=== PATIENT | female | born 1985 | race Caucasian/White ===

== ENCOUNTER → 2019-07-31 14:10 | Outpatient (BNVA) | payer OTHER, SELFPAY | PROVIDERS: Family Provider Registered Nurse; Visit Provider Registered Nurse | DX: R39.9 Unspecified symptoms and signs involving the genitourinary system (principal); R10.9 Unspecified abdominal pain | CPT/HCPCS: 81000 ==

== ENCOUNTER → 2020-01-09 10:42 | Outpatient (BNVA) | payer OTHER, SELFPAY | PROVIDERS: Family Provider Registered Nurse; Visit Provider Obstetrics & Gynecology | DX: Z12.4 Encounter for screening for malignant neoplasm of cervix (principal) | CPT/HCPCS: 88175 ==

== ENCOUNTER → 2020-01-30 11:58 | Outpatient (BNVA) | payer OTHER, SELFPAY | PROVIDERS: Family Provider Registered Nurse; Visit Provider Nurse Practitioner Family | DX: Z20.828 Contact with and (suspected) exposure to other viral communicable diseases (principal); J06.9 Acute upper respiratory infection, unspecified; R43.0 Anosmia | CPT/HCPCS: 87635 ==

== ENCOUNTER → 2020-02-09 10:24 | Outpatient (BNVA) | payer OTHER, SELFPAY | PROVIDERS: Family Provider Registered Nurse; Visit Provider Nurse Practitioner | DX: R05 Cough (principal) | CPT/HCPCS: 71046 ==

== ENCOUNTER → 2020-03-25 17:20 | Outpatient (BNVA) | payer OTHER, SELFPAY | PROVIDERS: Family Provider Registered Nurse; Visit Provider Nurse Practitioner Family | DX: Z20.828 Contact with and (suspected) exposure to other viral communicable diseases (principal); J06.9 Acute upper respiratory infection, unspecified | CPT/HCPCS: 87635 ==

== ENCOUNTER → 2021-06-08 09:05 | Outpatient (BNVA) | payer BC, SELFPAY | PROVIDERS: Family Provider Registered Nurse; PCP Registered Nurse; Visit Provider Registered Nurse | DX: F32.9 Major depressive disorder, single episode, unspecified (principal); L03.039 Cellulitis of unspecified toe; F43.10 Post-traumatic stress disorder, unspecified | CPT/HCPCS: 80053 ==

== ENCOUNTER 2021-06-23 14:59 | Inpatient (IN) | payer BC, SELFPAY ==
--- NOTE | 2021-06-23 15:56 | ED.C_ITS ---
HPI - Psych General: Chief Complaint: Psychiatric Symptoms Stated Complaint: psych eval Time Seen by Provider: 06/23/21 15:56 History of Present Illness: Ms. Thacker is a 35-year-old lady with history of PTSD who presents the emergency department due to worsening mental state. She reports longstanding history of issues with PTSD and has at times been managed outpatient on medications. Last hospitalization was approximately 14 years ago. Over the past week or so and especially over past few day she has had marked worsening of symptoms. She endorses going and talking to [facility] yesterday and subsequently developing worse symptoms. She is tearful and anxious. She feels like she wants to cry but cannot. She has had fights with family and is lashing out. Overall the course of symptoms has been worsening. Intensity is moderate to severe. And HPI. Onset (ago): day(s) History of same: Yes Context: significant life stressor Associated psychiatric symptoms: depression and racing thoughts Review of Systems General: Reports: 10 or more systems reviewed and unremarkable except in HPI and below PFSH ED PFSH: Medical History Depression Psychiatric care Surgical History No pertinent past surgical history Family History Mother , age 23 from car accident No problems noted. Social History Smoking and tobacco status: current every day smoker cigarettes Packs smoked per day: 0.5 [ Other cigarette details: Most 1 ppd. Started age 21.] Alcohol intake: current Alcohol intake frequency: holidays/special occasions only Adopted: No Caregiver/support person: No Lives independently: No Household members: spouse and children Marital status: service: No Current occupational status: employed Sexually active: Yes Current gender identity: Female Physical Exam Const: COMMON NORMALS: alert GENERAL APPEARANCE: cooperative and well developed HENMT: COMMON NORMALS: normocephalic and atraumatic HEAD & SCALP: normocephalic and atraumatic Eye: COMMON NORMALS: conjunctivae normal CONJUNCTIVA: Yes conjunctivae normal SCLERA: sclerae normal Neck/C-Spine: COMMON NORMALS: supple GENERAL: Yes trachea midline Resp: COMMON NORMALS: normal respiratory effort EFFORT & INSPECTION: Yes able to speak in complete sentences Cardio: COMMON NORMALS: regular rate and regular rhythm RATE: regular rate RHYTHM: regular rhythm GI: COMMON NORMALS: Soft to palpation PALPATION: Yes Soft to palpation and No Tenderness to palpation present (GI) PERCUSSION: normal to percussion Extremity: GENERAL: Yes normal exam except as noted and No edema Neuro: COMMON NORMALS: moves all extremities SENSORIUM/ORIENTATION: Yes alert and No Orientation impaired Psych: ATTITUDE: Yes Withdrawn affect present MOOD & AFFECT: Yes depressed mood, Yes anxious and Yes Labile affect present Course ED course: - Patient was seen and evaluated by me at bedside -Vital signs obtained - Initial evaluation notable for exam as above, intermittent tearfulness, dist ressed due to psychologic state - Labs personally interpreted by me - Labs notable for no significant hematologic or metabolic abnormality to explain patient's symptoms. Drug screen as tested only positive for THC which the patient endorses. - Upon serial reexamination after treatment the patient was similar - Discussed with Dr. Borges who agreed to admit the patient to the psychiatric service - Based on ED evaluation to this point there is no obvious condition that would preclude the patient from inpatient management of psychiatric concerns. She desires inpatient management. Note: Click bubbles or prepopulated duque in note writing are used for assistance with data collection and billing and are inherently more limited than narrative and other text portions of this note. Please use narrative for additional clinical history and defer to narrative/free test for any case of contradictory information. If information appears in only free text or click bubble it should be considered present or absent as reported. Please contact note junior copywriter for clarifications of clinical information or contradictory information. MDM is a brief summary, contradictory or erroneous seeming information should be clarified and full note should be reviewed. Vital Signs: Vital signs: Vital Signs Temperature 97.7 F 06/25/21 09:16 Pulse Rate 84 06/25/21 09:16 Respiratory Rate 17 06/25/21 09:16 Blood Pressure 144/90 06/25/21 09:16 Pulse Oximetry 98 06/25/21 09:16 MDM - Psych Medical Decision Making 35-year-old lady with history of trauma and psychiatric illness who has not recently been managed presenting for worsening symptoms. Admitted to NPU for further management. Medical Records I reviewed the patient's medical records. Lab Data I reviewed the patient's lab results. : 06/23/21 16:30 06/23/21 16:30 Laboratory Results WBC 8.3 10^3/uL (4.0-10.0) 06/23/21 16:30 RBC 4.75 10^6/uL (4.1-5.3) 06/23/21 16:30 Hgb 15.1 g/dL (11.5-15.3) 06/23/21 16:30 Hct 42.9 % (37.0-47.0) 06/23/21 16:30 MCV 90.3 fl (81-99) 06/23/21 16: MCH 31.8 pg (28.0-34.0) 06/23/21 16: MCHC 35.2 g/dL (30.0-36.0) 06/23/21 16: RDW 11.7 % (12.1-15.1) L 06/23/21 16: Plt Count 185 10^3/cmm (130-400) 06/23/21 16: MPV 10.4 fL (7.4-10.4) 06/23/21 16:30 Neut % (Auto) 67.6 % 06/23/21 16:30 Lymph % (Auto) 24.8 % 06/23/21 16:30 [place] % (Auto) 6.6 % 06/23/21 16:30 Eos % (Auto) 0.5 % 06/23/21 16: Baso % (Auto) 0.4 % 06/23/21: Neut # (Auto) 5.63 10^3/uL (1.8-7.7) 06/23/21 16: Lymph # (Auto) 2.1 10^3/uL (0.8-4.8) 06/23/21 16:30 [place] # (Auto) 0.6 10^3/uL (0.2-0.9) 06/23/21 16:30 Eos # (Auto) 0.0 10^3/uL (0.0-0.8) 06/23/21 16:30 Baso # (Auto) 0.0 10^3/uL (0.0-0.1) 06/23/21 16:30 Nucleated RBC % (auto) 0 % 06/23/21 16:30 Nucleated RBCs # 0.0 /100WBC 06/23/21 16:30 Sodium 140 mmol/L (136-145) 06/23/21 16:30 Potassium 3.8 mmol/L (3.5-5.1) 06/23/21 16:30 Chloride 105 mmol/L (98-107) 06/23/21 16:30 Carbon Dioxide 24 mmol/L (22-29) 06/23/21 16:30 Anion Gap 14.8 (5-19) 06/23/21 16:30 BUN 8 mg/dL (6-20) 06/23/21 16:30 Creatinine 0.6 mg/dL (0.5-0.9) 06/23/21 16:30 GFR Calculation 113.8 mL/min (90-130) 06/23/21 16:30 Glucose 81 mg/dL (65-115) 06/23/21 16:30 Calculated Osmolality 287 mOsm/kg (285-295) 06/23/21 16:30 Calcium 9.1 mg/dL (8.5-10.5) 06/23/21 16:30 Total Bilirubin 0.4 mg/dL (0.15-1.2) 06/23/21 16:30 AST 17 U/L (0-32) 06/23/21 16:30 ALT 17 U/L (0-33) 06/23/21 16:30 Alkaline Phosphatase 64 IU/L (35-105) 06/23/21 16:30 Total Protein 7.0 g/dL (6.6-8.7) 06/23/21 16:30 Albumin 4.2 g/dL (3.5-5.2) 06/23/21 16:30 Globulin 2.8 g/dL (1.3-4.6) 06/23/21 16:30 TSH 3.88 uIU/mL (0.27-4.20) 06/23/21 16:30 HCG, Qual Negative (Negative) 06/23/21 16:05 Salicylates < 0.3 mg/dL (3-10) L 06/23/21 16:30 Urine Opiates Screen Negative ng/mL (Negative) 06/23/21 16:05 Acetaminophen < 5.0 ug/mL (10-30) L 06/23/21 16:30 Ur Barbiturates Screen Negative ng/mL (Negative) 06/23/21 16:05 Ur Phencyclidine Scrn Negative ng/mL (Negative) 06/23/21 16:05 Ur Amphetamines Screen Negative ng/mL (Negative) 06/23/21 16:05 U Benzodiazepines Scrn Negative ng/mL (Negative) 06/23/21 16:05 Urine Cocaine Screen Negative ng/mL (Negative) 06/23/21 16:05 U Marijuana (THC) Screen Positive ng/mL (Negative) H 06/23/21 16:05 Ethyl Alcohol < 10 mg/dL (0-10) 06/23/21 16:30 Discharge Plan Discharge Patient Disposition: Admitted As Inpatient Admit Provider: Douglas Borges Clinical Impression: Depression Condition: Stable Discharge Diet: Regular Discharge Activity: Resume usual activity Coding Level of Care Code ED Surveillance Officer for Jose Lambert
[2021-06-23 15:58] VITALS: BP 144/94; PULSE 89; RESP 15; TEMP 37.1; O2SAT 98; BMI 28.5
[2021-06-23 16:47] LABS: Basophils % 0.4 %; Eosinophils % 0.5 %; Hematocrit 42.9 % (37.0-47.0); Hemoglobin 15.1 g/dL (11.5-15.3); Lymphocytes # 2.1 10^3/uL (0.8-4.8); Lymphocytes % 24.8 %; Mean Corpuscular HGB Conc 35.2 g/dL (30.0-36.0); Mean Corpuscular Hemoglobin 31.8 pg (28.0-34.0); Mean Corpuscular Volume 90.3 fl (81-99); Mean Platelet Volume 10.4 fL (7.4-10.4); Monocytes # 0.6 10^3/uL (0.2-0.9); Monocytes % 6.6 %; Neutrophils # 5.63 10^3/uL (1.8-7.7); Neutrophils % 67.6 %; Nucleated Red Blood Cells % 0 %; Platelet Count 185 10^3/cmm (130-400); Red Blood Count 4.75 10^6/uL (4.1-5.3); Red Cell Distribution Width 11.7 % (12.1-15.1); White Blood Count 8.3 10^3/uL (4.0-10.0)
[2021-06-23 16:49] LABS: HCG Qualitative Urine. Negative (Negative)
[2021-06-23 17:31] LABS: Alanine Aminotransferase 17 U/L (0-33); Albumin Level 4.2 g/dL (3.5-5.2); Alkaline Phosphatase 64 IU/L (35-105); Anion Gap 14.8 (5-19); Aspartate Amino Transferase 17 U/L (0-32); Blood Urea Nitrogen 8 mg/dL (6-20); Calcium 9.1 mg/dL (8.5-10.5); Carbon Dioxide 24 mmol/L (22-29); Chloride 105 mmol/L (98-107); Creatinine Clr Calc Pharmacy 120.5784; Globulin 2.8 g/dL (1.3-4.6); Glomerular Filtration Rate 113.8 mL/min (90-130); Glucose 81 mg/dL (65-115); Osmolality Calculated 287 mOsm/kg (285-295); Potassium 3.8 mmol/L (3.5-5.1); Sodium 140 mmol/L (136-145); Thyroid Stimulating Hormone 3.88 uIU/mL (0.27-4.20); Total Bilirubin 0.4 mg/dL (0.15-1.2)
[2021-06-23 17:41] LABS: Acetaminophen < 5.0 ug/mL (10-30); Alcohol Level < 10 mg/dL (0-10); Salicylate < 0.3 mg/dL (3-10)
[2021-06-23 19:23] LABS: Amphetamines Screen Urine Negative (Negative); Barbiturates Screen Urine Negative (Negative); Benzodiazepines Screen Urine Negative (Negative); Cocaine Screen Urine Negative (Negative); Opiate Screen Urine Negative (Negative); PCP Screen Urine Negative (Negative); THC Screen Urine Positive (Negative)
[2021-06-23 19:30] VITALS: BP 129/93; PULSE 104; RESP 18; TEMP 36.9; O2SAT 97
[2021-06-23 19:31] VITALS: BP 129/93; PULSE 94; RESP 18; O2SAT 98
[2021-06-23] MEDS: hyDROXYzine 25 mg Capsule 50 MG PO (21:27)
--- NOTE | 2021-06-23 21:52 | PC.NURSE ---
2126- requested vistaril for anxiety.
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
[2021-06-24 06:00] VITALS: BP 118/75; PULSE 77; RESP 17; TEMP 36.8; O2SAT 96
[2021-06-24] MEDS: PARoxetine 20 mg Tablet 60 MG PO (08:45)
[2021-06-24] MEDS: hyDROXYzine 25 mg Capsule 50 MG PO ×2 (09:17→20:04)
--- NOTE | 2021-06-24 09:19 | PC.NURSE ---
Addendum entered by Telly Hansen RN 06/24/21 09:48: PT ON PHONE, O S/S OF DISTRESS, WILL CONTINUE TO MONITOR. Original Note: PRN MED PT GIVEN 50MG VISTARIL FOR STATED ANXIETY, WILL CONTINUE TO MONITOR.
[2021-06-24] MEDS: acetaminophen 325 mg Tablet 650 MG PO (10:46)
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
[2021-06-24 14:00] VITALS: BP 124/76; PULSE 83; RESP 17; TEMP 36.6; O2SAT 95
[2021-06-24] MEDS: nicotine 2 mg Gum BUCCAL ×2 (16:16→18:35)
--- NOTE | 2021-06-24 16:39 | PC.SOCIAL ---
Patient attended and participated in group.
[2021-06-24] MEDS: OLANZapine 5 mg ODT PO (18:35)
--- NOTE | 2021-06-24 18:39 | PC.NURSE ---
PRN MED PT GIVEN 5MG ZYPREXA, FOR ANXIETY/IRRITABLE, WILL CONTINUE TO MONITOR.
[2021-06-24 20:36] VITALS: BP 144/90; PULSE 84; RESP 17; TEMP 36.5; O2SAT 98
--- NOTE | 2021-06-24 21:37 | PC.NURSE ---
2004 Received vistaril for her anxiety.
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
[2021-06-25] MEDS: hyDROXYzine 25 mg Capsule 50 MG PO (08:37)
[2021-06-25] MEDS: PARoxetine 20 mg Tablet 60 MG PO (08:37)
[2021-06-25] MEDS: docusate sodium 100 mg Capsule PO (08:39)
[2021-06-25 09:16] VITALS: BP 144/90; PULSE 84; RESP 17; TEMP 36.5; O2SAT 98
== END 2021-06-25 10:45 | disposition home or self-care (01) | DRG 881 ==
LOC: ER 18:02 → NP 18:58
PROVIDERS: Admitting Provider Psychiatry & Neurology Psychiatry; Emergency Provider Emergency Medicine; Family Provider Registered Nurse; PCP Registered Nurse; Visit Provider Psychiatry & Neurology Psychiatry
DX: F32.A Depression, unspecified (principal); F43.12 Post-traumatic stress disorder, chronic; F17.210 Nicotine dependence, cigarettes, uncomplicated; F41.9 Anxiety disorder, unspecified
CPT/HCPCS: 80053; 80306; 80307; 81025; 84443; 85025; 97150; 97165; 99285

== ENCOUNTER → 2021-07-30 10:47 | Outpatient (BNVA) | payer BC, SELFPAY | PROVIDERS: PCP Registered Nurse; Visit Provider Nurse Practitioner Family | DX: N39.0 Urinary tract infection, site not specified (principal); R30.0 Dysuria | CPT/HCPCS: 81000 ==

== ENCOUNTER → 2022-07-14 13:28 | Outpatient (BNVA) | payer MEDICAID, SELFPAY | PROVIDERS: PCP Registered Nurse; Visit Provider Registered Nurse | DX: R10.9 Unspecified abdominal pain (principal); B37.0 Candidal stomatitis | CPT/HCPCS: 81000; 87070; 87075; 87205 ==

== ENCOUNTER 2022-07-15 08:36 | Emergency (ER) | payer MEDICAID, SELFPAY ==
[2022-07-15 08:45] VITALS: TEMP 36.7; BMI 36.0
[2022-07-15 08:49] VITALS: BP 134/95; PULSE 89; RESP 16; O2SAT 94
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
[2022-07-15 09:52] VITALS: RESP 20
[2022-07-15] MEDS: ketorolac 30 mg/mL INJ IVP (09:52)
[2022-07-15] MEDS: morphine 4 mg/mL SDV 1 mL IVP (09:52)
[2022-07-15] MEDS: orphenadrine 30 mg/mL Inj 2 mL 60 MG IVP (09:52)
[2022-07-15] MEDS: dexamethasone 10 mg/mL INJ IVP (09:52)
[2022-07-15 10:02] VITALS: BP 138/104; PULSE 81; O2SAT 95
[2022-07-15 10:35] VITALS: BP 118/76; O2SAT 93
[2022-07-15 10:51] LABS: Urine Appearance Hazy (CLEAR); Urine Color Straw (Yellow); pH Urine 8 (5-7)
[2022-07-15 10:52] LABS: Bilirubin Urine Neg (Negative); Blood Urine Neg (Negative); Glucose Urine UA Norm (Normal); Ketones Urine Negative (Negative); Nitrate Urine Negative (Negative); Protein Urine Neg (Negative); Specific Gravity, Urine 1.005 (1.005-1.030); Sulfosalicylic Acid Urine Negative (Negative); Urobilinogen Urine Norm (Negative)
[2022-07-15 10:53] LABS: Add Urine Culture? No; Add Urine Microscopic? YES; Bacteria Urine 1+ /hpf; Leukocyte Esterase Urine Trace (Negative); RBC Urine 0-4 /hpf (0-2); WBC Urine 0-4 /hpf (0-5)
[2022-07-15 11:26] VITALS: BP 122/98; PULSE 89; O2SAT 94
== END 2022-07-15 11:26 | disposition home or self-care (01) ==
PROVIDERS: Emergency Provider Family Medicine; PCP Registered Nurse
DX: S39.012A Strain of muscle, fascia and tendon of lower back, initial encounter (principal); F17.210 Nicotine dependence, cigarettes, uncomplicated; X58.XXXA Exposure to other specified factors, initial encounter
CPT/HCPCS: 81001; 96374; 96375; 99284; J1100; J1885; J2270; J2360

== ENCOUNTER 2022-07-21 12:08 | Outpatient (CLI) | payer MEDICAID, SELFPAY ==
--- NOTE | 2022-07-21 11:00 | CT_ITS ---
WS: [id number] CT ABDOMEN PELVIS TECHNIQUE: Noncontrast CT of the abdomen and pelvis with coronal and sagittal reformatted images. CLINICAL INFORMATION: N20.0 - Calculus of kidney COMPARISON: 2013 DLP: 671.[address] scans at [facility] use at least one of these dose optimization techniques: automated e xposure control; mA and/or kV adjustment per patient size (includes targeted exams where dose is matc hed to clinical indication); or iterative reconstruction. FINDINGS: Noncontrast liver is normal. Normal noncontrast spleen. Small esophageal hiatal hernia. Adrenal gland s are normal. Noncontrast pancreas is normal. Normal sigmoid colon. Normal appendix RIGHT lower quadr ant. No evidence of acute appendicitis. Lung bases are well aerated. Adrenal glands are normal. No hydronephrosis in either kidney. No obstru cting renal or ureteral calculi.No evidence of high-grade small or large bowel obstruction. Tiny fat- containing umbilical hernia. CT/CT kidney stone [id number] IMPRESSION: 1. No hydronephrosis in either kidney. 2. No obstructing renal or ureteral calculi. 3. Normal appendix in the RIGHT lower quadrant. No evidence of acute appendici tis. 4. Small esophageal hiatal hernia. 5. Normal sigmoid colon. 6. No other acute findings.
== END 2022-07-21 12:09 | disposition home or self-care (01) ==
LOC: RAD 12:10
PROVIDERS: PCP Registered Nurse; Visit Provider Registered Nurse
DX: N20.0 Calculus of kidney (principal); K44.9 Diaphragmatic hernia without obstruction or gangrene; R10.9 Unspecified abdominal pain; F41.9 Anxiety disorder, unspecified
CPT/HCPCS: 74176; 80053; 81000; 85025

== ENCOUNTER 2022-07-22 13:42 | Outpatient (CLI) | payer MEDICAID, SELFPAY ==
--- NOTE | 2022-07-22 13:51 | XR_ITS ---
WS: [id number] Lumbar spine, 3 views, 07/22/2022 Clinical Data: S39.012A - Strain of muscle, fascia and tendon of lower b... Comparison: None. Findings: No compression fractures or subluxation is seen. No disc space narrowing is seen. Minimal anterior sp urring is seen at L4. The transverse processes and SI joints are normal. XR/XR lumbar spine 2-3V* [id number] Impression: Mild osteoarthritis at L4.
== END 2022-07-22 13:43 | disposition home or self-care (01) ==
PROVIDERS: PCP Registered Nurse; Visit Provider Registered Nurse
DX: S39.012A Strain of muscle, fascia and tendon of lower back, initial encounter (principal); X58.XXXA Exposure to other specified factors, initial encounter; M47.816 Spondylosis without myelopathy or radiculopathy, lumbar region
CPT/HCPCS: 72100

== ENCOUNTER → 2022-10-25 19:17 | Outpatient (BNVA) | payer MEDICAID, SELFPAY | PROVIDERS: PCP Registered Nurse; Visit Provider Emergency Medicine | DX: R05.9 Cough, unspecified (principal); J20.8 Acute bronchitis due to other specified organisms; B96.89 Other specified bacterial agents as the cause of diseases classified elsewhere | CPT/HCPCS: 87426 ==

== ENCOUNTER 2022-12-16 15:52 | Outpatient (CLI) | payer MEDICAID, SELFPAY ==
--- NOTE | 2022-12-16 16:06 | XRR_ITS ---
PROCEDURE INFORMATION: Exam: XR Chest Exam date and time: 12/16/2022 4:09 PM Age: 37 years old Clinical indication: Shortness of breath; Patient HX: SOB since October; Additional info: R06.02 - shortness of breath TECHNIQUE: Imaging protocol: Radiologic exam of the chest. Views: 2 views. COMPARISON: CR XR chest 2V* [id number] 02/09/2020 10:39 AM FINDINGS: Lungs: Unremarkable. No consolidation. Pleural spaces: Unremarkable. No pleural effusion. No pneumothorax. Heart/Mediastinum: Unremarkable. No cardiomegaly. Bones/joints: Unremarkable. XR/XR chest 2V* [id number] IMPRESSION: No acute findings.
== END 2022-12-16 15:53 | disposition home or self-care (01) ==
PROVIDERS: PCP Registered Nurse; Visit Provider Registered Nurse
DX: R06.02 Shortness of breath (principal)
CPT/HCPCS: 71046

== ENCOUNTER → 2023-04-20 11:36 | Outpatient (BNVA) | payer SELFPAY | PROVIDERS: PCP Registered Nurse; Visit Provider Registered Nurse | DX: I10 Essential (primary) hypertension (principal) | CPT/HCPCS: 80053; 80061; 85025; 93005 ==

== ENCOUNTER 2023-05-08 12:11 | Emergency (ER) | payer SELFPAY ==
[2023-05-08 12:22] VITALS: BP 139/88; PULSE 98; RESP 16; TEMP 36.7; O2SAT 97; BMI 38.4
--- NOTE | 2023-05-08 12:39 | W.ED.ALLEREA ---
HPI - Allergic Reaction General: Chief complaint: Allergic Reaction Stated complaint: sent over by dr allergic reation Time Seen by Provider: 05/08/23 12:12 Source: patient Mode of arrival: ambulatory Limitations: no limitations History of Present Illness: HPI narrative: Patient is a 37-year-old female presents to ED today with complaint of full body itching. She states symptoms have been present over the past 2 to 3 days. No known environmental, chemical, household exposures. She has not noticed any obvious rash or lesions. She has not noticed any swelling to her lips or tongue. She has no difficulty swallowing or breathing. MD complaint: other (itching) Onset (ago): day(s) Exposure: unknown Associated symptoms: Reports itching; Deny abdominal pain, nausea or vomiting Severity: moderate Previous Allergic Reaction History: none Review of Systems Const: Denies: fever(s), chills, body aches, fatigue or malaise Eyes: Denies: change in vision, blurry vision, photophobia, floaters or seeing flashes ENMT: Denies: throat pain, uvular edema, enlarged tonsils, odynophagia or swelling of lips/tongue Card: Denies: chest pain Resp: Denies: dyspnea GI: Denies: abdominal pain, nausea or vomiting Skin/Breast: Reports: pruritus Neuro: Denies: headache(s), numbness in extremities, weakness in extremities or sensory changes PFSH ED PFSH: Medical History Cannabis dependence, uncomplicated Nicotine dependence, cigarettes, uncomplicated Psychiatric care Depression Surgical History No pertinent past surgical history Family History Mother , age 23 from car accident No problems noted. Social History Smoking and tobacco/nicotine status: former use of tobacco/nicotine Quit status (tobacco/nicotine): has quit using Year quit tobacco: 2022 Former quit date comment: 12/2022 Second hand smoke exposure: No Alcohol intake: current Alcohol intake frequency: holidays/special occasions only Alcohol type: wine Substance/Drug Use: former Adopted: No Caregiver/support person: No Lives independently: No Household members: spouse and children Marital status: service: No Current occupational status: employed Sexually active: Yes Do you think of yourself as: Straight/Heterosexual Current gender identity: Female Physical Exam Const: COMMON NORMALS: no acute distress, patient oriented x3, no limitations, alert and well nourished GENERAL APPEARANCE: cooperative and other (itching) HENMT: COMMON NORMALS: normocephalic and atraumatic HEAD & SCALP: normal to inspection, normocephalic and atraumatic FACE & SINUS: normal facial exam; no erythema and no edema MOUTH: Normal oral and palatal mucosa present, lip normal and other (no angioedema) THROAT: posterior oropharynx normal and tonsils normal; no uvular edema Eye: GENERAL EYE: appearance normal, both eyes and all related structures Resp: COMMON NORMALS: normal respiratory effort and clear to auscultation bilaterally AUSCULTATION: clear to auscultation bilaterally Cardio: COMMON NORMALS: regular rate and regular rhythm RATE: regular rate RHYTHM: regular rhythm Extremity: GENERAL: Yes normal exam except as noted Neuro: COMMON NORMALS: patient oriented x3, moves all extremities, no focal motor deficits and no sensory deficits noted SENSORIUM/ORIENTATION: Yes alert Skin: NARRATIVE SKIN EXAM: mild non-specific rash posterior neck/upper shoulders Course Vital Signs: Vital signs: Vital Signs Temperature 98.0 F 05/08/23 12:22 Pulse Rate 98 05/08/23 12:22 Respiratory Rate 16 05/08/23 12:22 Blood Pressure 139/88 05/08/23 12:22 Pulse Oximetry 97 05/08/23 12:22 Oxygen Delivery Me thod Room Air 05/08/23 12:22 MDM - Allergic Reaction Medical Decision Making Patient here with complaints of diffuse pruritus without any known exposure. She has a mild rash to the back of her neck/upper shoulders this does not appear urticarial. Her vital signs are normal. She has no angioedema. No complaints of difficulty swallowing or breathing. Patient was given IV Solu-Medrol and Benadryl here. Patient is on lisinopril but again has no angioedema. Differential for generalized pruritus can be vast. Recommend she follow up with her PCP if symptoms do not improve over the next few days with steroids/benadryl. Medical Records I reviewed the patient's medical records. No radiology studies performed this visit Discharge Plan Discharge Patient Disposition: Home Clinical Impression: Pruritus Condition: Stable Prescriptions: New prednisone 10 mg tablet 10 mg PO DAILY 7 Days Qty: 27 0RF Rx Instructions: 6 tabs on days 1-2, 5 tabs on days 3, 4 tabs on day 4, 3 tabs on day 5, 2 tabs on day 6, 1 tab on day 7 No Action sertraline 50 mg tablet See Rx Instructions .ROUTE .COMPLEX Qty: 30 2RF Dose Instruction: TAKE ONE TABLET BY MOUTH DAILY Rx Instructions: TAKE ONE TABLET BY MOUTH DAILY lisinopril 10 mg tablet 10 mg PO DAILY 30 Days Qty: 30 0RF Discharge Orders: Discharge ED (Routine); Ordered 05/08/23 Ordered By: Ainsley Mcconnell Referrals: Daniela Tinajero FNP [Primary Care Provider] - Activity Restrictions/Additional Instructions: As we discussed you may continue to take Benadryl 50mg every 4-6 hours as needed for itching. Please follow-up with your primary care provider later this week if symptoms do not improve. You need to return to the emergency department at any point for swelling to your lips or tongue, difficulty breathing or swallowing, or any other concerns you may have. Coding Level of Care Code ED Marksmanship Instructor for Jose Lambert
[2023-05-08] MEDS: methylPREDNISolone sod succ 125 mg/2 mL INJ IVP (13:04)
[2023-05-08] MEDS: diphenhydrAMINE 50 mg/mL SDV 1mL IVP (13:04)
[2023-05-08 14:11] VITALS: BP 167/84; PULSE 87; O2SAT 97
== END 2023-05-08 14:19 | disposition home or self-care (01) ==
PROVIDERS: Emergency Provider Physician Assistant; PCP Registered Nurse
DX: L29.9 Pruritus, unspecified (principal); Z87.891 Personal history of nicotine dependence
CPT/HCPCS: 96374; 96375; 99284; J1200; J2930

== ENCOUNTER 2023-05-19 12:42 | Emergency (ER) | payer SELFPAY ==
[2023-05-19 12:55] VITALS: BP 139/80; PULSE 109; RESP 18; TEMP 36.7; O2SAT 97
--- NOTE | 2023-05-19 13:44 | XR_ITS ---
WS: [id number] Exam: XR chest 1V portable [id number] Date/Time of Exam: 05/19/2023 1:44 PM Reason For Exam: dyspnea/cough Comparison 12/16/2022. Findings: The lungs are clear and fully expanded. Costophrenic angles are sharp. No infiltrates. Bronchovascula r relief appears normal. Cardiac silhouette is unremarkable. Bony elements are intact. IMPRESSION: Unremarkable chest radiograph.
--- NOTE | 2023-05-19 13:44 | ECG_ITS ---
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 [email or web address] [id number]
[2023-05-19 14:39] LABS: Basophils % 0.4 %; Eosinophils # 0.1 10^3/uL (0.0-0.8); Eosinophils % 0.9 %; Hematocrit 40.9 % (36-47); Lymphocytes # 2.4 10^3/uL (0.8-4.8); Lymphocytes % 22.2 %; Mean Corpuscular Hemoglobin 30.2 pg (27-33); Mean Corpuscular Volume 88.7 fl (85-98); Mean Platelet Volume 8.9 fL (7.4-10.4); Monocytes # 0.6 10^3/uL (0.2-0.9); Neutrophils % 70.1 %; Nucleated Red Blood Cells % 0 %; Platelet Count 177 10^3/cmm (157-399); Red Blood Count 4.61 10^6/uL (3.85-5.65); Red Cell Distribution Width 12.5 % (12.1-15.1)
[2023-05-19 14:58] LABS: Alanine Aminotransferase 17 U/L (0-33); Albumin Level 3.6 g/dL (3.5-5.2); Alkaline Phosphatase 71 U/L (35-105); Anion Gap 11.9 (5-19); Aspartate Amino Transferase 12 U/L (0-32); Blood Urea Nitrogen 13 mg/dL (6-20); Calcium 8.6 mg/dL (8.5-10.5); Carbon Dioxide 27 mmol/L (22-29); Chloride 102 mmol/L (98-107); Creatinine Clr Calc Pharmacy 167.0892; Globulin 2.8 g/dL (1.3-4.6); Glomerular Filtration Rate 138.8 mL/min (90-130); Glucose 128 mg/dL (65-115); Osmolality Calculated 286 mOsm/kg (285-295); Potassium 3.9 mmol/L (3.5-5.1); Sodium 137 mmol/L (136-145); Total Bilirubin 0.3 mg/dL (0.15-1.2); Total Protein 6.4 g/dL (6.6-8.7)
--- NOTE | 2023-05-19 14:58 | ED_ITS ---
HPI - Chest Pain 2 General: Chief Complaint: Chest Pain Stated Complaint: Chest Pains Time Seen by Provider: 05/19/23 13:40 Source: patient Mode of arrival: ambulatory History of Present Illness: 37-year-old female presents emergency ro om complaining of chest discomfort and pressure that began last night persisted throughout this morning. She did recently increase her dose of losartan. She has noticed some mild exertional dyspnea. No radiation of pain to the neck back or arms. No fever sweats chills cough. No myalgias. MD complaint: chest pain Onset (ago): minute(s) Timing of current episode: episodic Onset: during rest Pain location: left chest Pain radiation: none Severity: mild Quality: sharp Relieving factors: nothing Exacerbating factors: nothing Associated symptoms: Deny abdominal pain, dyspnea or fever(s) Treatment prior to arrival: none Review of Systems 2 Const: Denies: fever(s) or chills Card: Denies: chest pain Resp: Denies: dyspnea GI: Denies: abdominal pain : Denies: dysuria, urinary frequency or urinary urgency Musc: Denies: neck pain or back pain Skin/Breast: Denies: rash PFSH ED 2 PFSH: Medical History Cannabis dependence, uncomplicated Nicotine dependence, cigarettes, uncomplicated Psychiatric care Depression Surgical History No pertinent past surgical history Family History Mother , age 23 from car accident No problems noted. Social History Smoking and tobacco/nicotine status: former use of tobacco/nicotine Quit status (tobacco/nicotine): has quit using Year quit tobacco: 2022 Former quit date comment: 12/2022 Second hand smoke exposure: No Alcohol intake: current Alcohol intake frequency: holidays/special occasions only Alcohol type: wine Substance/Drug Use: former Adopted: No Caregiver/support person: No Lives independently: No Household members: spouse and children Marital status: service: No Current occupational status: employed Sexually active: Yes Do you think of yourself as: Straight/Heterosexual Current gender identity: Female Physical Exam 2 Const: COMMON NORMALS: no acute distress GENERAL APPEARANCE: cooperative and comfortable ORIENTATION/CONSCIOUSNESS: Yes awake, Yes oriented to person, Yes oriented to place and Yes oriented to time HENMT: COMMON NORMALS: normocephalic, atraumatic and hearing grossly normal bilaterally HEAD & SCALP: normocephalic and atraumatic Resp: COMMON NORMALS: normal respiratory effort, No retractions, No use of accessory muscles and clear to auscultation bilaterally AUSCULTATION: clear to auscultation bilaterally Cardio: COMMON NORMALS: regular rate, regular rhythm and No murmurs present (Cardio) RATE: regular rate RHYTHM: regular rhythm GI: COMMON NORMALS: Soft to palpation and No hepatosplenomegaly present A USCULTATION: Yes normoactive bowel sounds PALPATION: Yes Soft to palpation, No Tenderness to palpation present (GI), No Guarding due to palpation present (GI) and Yes No hepatosplenomegaly present Extremity: COMMON NORMALS: normal to inspection, capillary refill normal, no clubbing, cyanosis or edema, no calf tenderness and no pedal edema Neuro: SENSORIUM/ORIENTATION: Yes oriented to person, Yes oriented to place and Yes oriented to time Skin: COMMON NORMALS: no rashes or lesions noted GENERAL SKIN EXAM: no rashes or lesions noted Course 2 Vital Signs: Vital signs: Vital Signs Temperature 98.0 F 05/19/23 12:55 Pulse Rate 84 05/19/23 17:55 Respiratory Rate 18 05/19/23 17:55 Blood Pressure 133/87 05/19/23 16:00 Pulse Oximetry 98 05/19/23 17:55 Oxygen Delivery Me thod Room Air 05/19/23 12:55 MDM - Chest Pain Medical Decision Making Labs and imaging reviewed chest x-ray negative EKG did not show any acute ST changes otherwise normal sinus rhythm. CT chest did not show any pulmonary embolisms. Discharge patient home continue current medications follow-up with her primary care doctor. Baseline troponin is less than 6. Medical Records I reviewed the patient's medical records. Lab Data I reviewed the patient's lab results. 05/19/23 14:24 05/19/23 14:24 Radiology Impressions Chest CTA 05/19/23 14:58 IMPRESSION: Negative for pulmonary embolism. No acute findings. Laboratory Results WBC 10.70 10^3/uL (3.29-11.43) 05/19/23 14:24 RBC 4.61 10^6/uL (3.85-5.65) 05/19/23 14:24 Hgb 13.90 g/dL (11.27-16.99) 05/19/23 14:24 Hct 40.9 % (36-47) 05/19/23 14:24 MCV 88.7 fl (85-98) 05/19/23 14:24 MCH 30.2 pg (27-33) 05/19/23 14:24 MCHC 34.0 g/dL (30-55) 05/19/23 14:24 RDW 12.5 % (12.1-15.1) 05/19/23 14:24 Plt Count 177 10^3/cmm (157-399) 05/19/23 14:24 MPV 8.9 fL (7.4-10.4) 05/19/23 14:24 Neut % (Auto) 70.1 % 05/19/23 14:24 Lymph % (Auto) 22.2 % 05/19/23 14:24 [place] % (Auto) 6.0 % 05/19/23 14:24 Eos % (Auto) 0.9 % 05/19/23 14:24 Baso % (Auto) 0.4 % 05/19/23 14:24 Neut # (Auto) 7.50 10^3/uL (1.8-7.7) 05/19/23 14:24 Lymph # (Auto) 2.4 10^3/uL (0.8-4.8) 05/19/23 14:24 [place] # (Auto) 0.6 10^3/uL (0.2-0.9) 05/19/23 14:24 Eos # (Auto) 0.1 10^3/uL (0.0-0.8) 05/19/23 14:24 Baso # (Auto) 0.0 10^3/uL (0.0-0.1) 05/19/23 14:24 Nucleated RBC % (auto) 0 % 05/19/23 14:24 Nucleated RBCs # 0.0 /100WBC 05/19/23 14:24 Sodium 137 mmol/L (136-145) 05/19/23 14:24 Potassium 3.9 mmol/L (3.5-5.1) 05/19/23 14:24 Chloride 102 mmol/L (98-107) 05/19/23 14:24 Carbon Dioxide 27 mmol/L (22-29) 05/19/23 14:24 Anion Gap 11.9 (5-19) 05/19/23 14:24 BUN 13 mg/dL (6-20) 05/19/23 14:24 Creatinine 0.5 mg/dL (0.5-0.9) 05/19/23 14:24 GFR Calculation 138.8 mL/min (90-130) H 05/19/23 14:24 Glucose 128 mg/dL (65-115) H 05/19/23 14:24 Calculated Osmolality 286 mOsm/kg (285-295) 05/19/23 14:24 Calcium 8.6 mg/dL (8.5-10.5) 05/19/23 14:24 Total Bilirubin 0.3 mg/dL (0.15-1.2) 05/19/23 14:24 AST 12 U/L (0-32) 05/19/23 14:24 ALT 17 U/L (0-33) 05/19/23 14:24 Alkaline Phosphatase 71 U/L (35-105) 05/19/23 14:24 Troponin T Baseline < 6 ng/L (0-10) 05/19/23 14:24 Total Protein 6.4 g/dL (6.6-8.7) L 05/19/23 14:24 Albumin 3.6 g/dL (3.5-5.2) 05/19/23 14:24 Globulin 2.8 g/dL (1.3-4.6) 05/19/23 14:24 All radiology interpretation(s) finalized by discharge Discharge Plan Discharge Patient Disposition: Home Clinical Impression: Pleuritic chest pain Condition: Stable Prescriptions: No Action metoprolol tartrate 25 mg tablet 25 mg PO DAILY 30 Days Qty: 30 0RF losartan 50 mg tablet 50 mg PO DAILY 30 Days Qty: 30 0RF hydroxyzine HCl 25 mg tablet 25 mg PO BID PRN (Reason: itching) 30 Days Qty: 60 0RF sertraline 50 mg tablet 100 mg PO DAILY Discharge Orders: Discharge ED (Routine); Ordered 05/19/23 Ordered By: Cahndu Veloz Referrals: Daniela Tinajero, MALENA [Primary Care Provider] - Discharge Diet: Usual diet Discharge Activity: Increase activity as tolerated Patient Instructions: Opioid Safety, Pain Management Activity Restrictions/Additional Instructions: Thank you for choosing [facility] for your healthcare needs today. Please realize this is an emergency room and that we are providing you with a medical screening exam and this may not be complete and all inclusive of all the testing and or work up that you may need to determine your ailment or severity of your illness. It is very important that you follow up as instructed or that you return to the Emergency Department should you have concerns or if your condition changes or worsens in any way. You are seen today for complaints of chest discomfort. Your labs and imaging did not show any particular abnormalities CT of your chest was negative EKG was unremarkable. Coding Level of Care Code ED Affiliate Manager for Jose Lambert
--- NOTE | 2023-05-19 14:58 | CTR_ITS ---
PROCEDURE INFORMATION: Exam: CTA Chest With Contrast Exam date and time: 05/19/2023 4:14 PM Age: 37 years old Clinical indication: Pain; Chest pressure; Additional info: Chest pain dyspnea tachycardia TECHNIQUE: Imaging protocol: Computed tomographic angiography of the chest with contrast. Exam focused on the arteries. 3D rendering (Not supervised by radiologist): MIP and/or 3D reconstructed images were created by the technologist. Radiation optimization: All CT scans at this facility use at least one of these dose optimization techniques: automated exposure control; mA and/or kV adjustment per patient size (includes targeted exams where dose is matched to clinical indication); or iterative reconstruction. Contrast material: OMNI 350; Contrast volume: 85 ml; Contrast route: INTRAVENOUS (IV); COMPARISON: CR XR chest 1V portable [id number] 05/19/2023 2:00 PM RADIATION DOSE METRICS: Total DLP (mGy-cm): 481.09 FINDINGS: Pulmonary arteries: Normal. No pulmonary emboli. Aorta: Unremarkable. No aortic aneurysm. No aortic dissection. Lungs: Unremarkable. No consolidation. No masses. Pleural spaces: Unremarkable. No pneumothorax. No pleural effusion. Heart: Unremarkable. No cardiomegaly. No pericardial effusion. Lymph nodes: Unremarkable. No enlarged lymph nodes. Bones/joints: Unremarkable. No acute fracture. Soft tissues: Unremarkable. CT/CT angio chest PE protcl [id number] IMPRESSION: Negative for pulmonary embolism. No acute findings.
[2023-05-19 15:00] VITALS: BP 135/79; PULSE 89; RESP 18; O2SAT 96
[2023-05-19 16:00] VITALS: BP 133/87; RESP 18; O2SAT 96
[2023-05-19] MEDS: iohexol 350 mg/mL 500 mL Btl (per mL) IV (16:18)
[2023-05-19 17:41] LABS: Troponin(5th) Baseline < 6 ng/L (0-10)
[2023-05-19 17:55] VITALS: PULSE 84; RESP 18; O2SAT 98
== END 2023-05-19 17:56 | disposition home or self-care (01) ==
PROVIDERS: Emergency Provider Family Medicine; PCP Registered Nurse
DX: R09.1 Pleurisy (principal); Z87.891 Personal history of nicotine dependence
CPT/HCPCS: 71045; 71275; 80053; 84484; 85025; 93005; 99285; Q9967

== ENCOUNTER → 2023-09-06 13:18 | Outpatient (BNVA) | payer SELFPAY | PROVIDERS: PCP Family Medicine Adult Medicine; Visit Provider Family Medicine Adult Medicine | DX: R07.9 Chest pain, unspecified (principal); F32.9 Major depressive disorder, single episode, unspecified; E66.9 Obesity, unspecified | CPT/HCPCS: 71046 ==

== ENCOUNTER 2024-06-27 14:36 | Outpatient (CLI) | payer OTHER, SELFPAY | END 2024-06-27 14:37 | disposition home or self-care (01) | LOC: SLEEP 14:38 | PROVIDERS: PCP Family Medicine Adult Medicine; Visit Provider Registered Nurse | DX: G47.33 Obstructive sleep apnea (adult) (pediatric) (principal); G47.36 Sleep related hypoventilation in conditions classified elsewhere | CPT/HCPCS: G0399 ==

== ENCOUNTER 2024-08-22 10:51 | Emergency (ER) | payer OTHER, MEDICAID, SELFPAY ==
[2024-08-22 10:52] VITALS: BP 164/95; PULSE 93; RESP 16; TEMP 36.6; O2SAT 99; BMI 38.9
[2024-08-22 11:26] VITALS: BP 134/81
--- NOTE | 2024-08-22 11:58 | US_ITS ---
WS: [id number] ULTRASOUND PELVIS TECHNIQUE: Transabdominal. CLINICAL INFORMATION: Pelvic pain LMP: Complete : No. COMPARISON: None. FINDINGS: Uterus Size: 10.0 cm x 5.7 cm x 4.8 cm Masses: None. Endometrium: Normal. Endometrium thickness: 1.1 cm. Adnexa: Normal. Right ovary size: 2.0 cm x 1.9 cm x 2.3 cm. Right ovary volume: 4.5 ccm3 Left ovary size: 2.0 cm x 2.1 cm x 3.1 cm. Left ovary volume: 7.1 ccm3 Free fluid: None. Other findings: None. US/US pelvic complete* [id number] IMPRESSION: 1. Endometrium measures 11 mm. 2. Normal adnexa and ovaries. 3. Normal vascularity to both ovaries. 4. No free fluid in the cul-de-sac. 5. No other acute findings.
[2024-08-22 12:17] LABS: Basophils % 0.2 %; Eosinophils # 0.1 10^3/uL (0.0-0.8); Eosinophils % 1.7 %; Hematocrit 34.5 % (36-47); Lymphocytes # 1.5 10^3/uL (0.8-4.8); Lymphocytes % 31.8 %; Mean Corpuscular HGB Conc 34.5 g/dL (30-55); Mean Corpuscular Hemoglobin 29.9 pg (27-33); Mean Corpuscular Volume 86.7 fl (85-98); Mean Platelet Volume 9.2 fL (7.4-10.4); Monocytes # 0.3 10^3/uL (0.2-0.9); Monocytes % 6.8 %; Neutrophils # 2.87 10^3/uL (1.8-7.7); Neutrophils % 59.3 %; Nucleated Red Blood Cells % 0 %; Platelet Count 138 10^3/cmm (157-399); Red Blood Count 3.98 10^6/uL (3.85-5.65); Red Cell Distribution Width 12.8 % (12.1-15.1); White Blood Count 4.84 10^3/uL (3.29-11.43)
[2024-08-22 12:33] LABS: Alanine Aminotransferase 14 U/L (0-33); Albumin Level 3.6 g/dL (3.5-5.2); Alkaline Phosphatase 65 U/L (35-105); Anion Gap 9.6 (5-19); Aspartate Amino Transferase 13 U/L (0-32); Blood Urea Nitrogen 10 mg/dL (6-20); Calcium 8.7 mg/dL (8.5-10.5); Carbon Dioxide 28 mmol/L (22-29); Chloride 105 mmol/L (98-107); Creatinine Clr Calc Pharmacy 137.8891; Globulin 3.1 g/dL (1.3-4.6); Glomerular Filtration Rate 111.9 mL/min (90-130); Glucose 129 mg/dL (65-115); Osmolality Calculated 289 mOsm/kg (285-295); Potassium 3.6 mmol/L (3.5-5.1); Sodium 139 mmol/L (136-145); Total Bilirubin 0.2 mg/dL (0.15-1.2); Total Protein 6.7 g/dL (6.6-8.7)
[2024-08-22 12:35] LABS: HCG, Serum Qual Negative (Negative)
--- NOTE | 2024-08-22 13:14 | ED_ITS ---
HPI - 2 General: Chief complaint: OB/Uterine Contractions Stated complaint: possible miscarriage/Sent from urgant care Time Seen by Provider: 08/22/24 11:29 History of Present Illness: This patient is a 38-year-old white female who presents to the emergency department stating that her last menstrual period was July 12. She states she was late for her period which she states never happens. She took several home test which were positive. Yesterday she developed some heavy vaginal bleeding and some sharp right-sided pelvic pain. She went to urgent care today and her test was negative. She was told to come to the emergency department for further evaluation. She denies chronic medical problems. Related Data Previous Rx's ?Medication ?Instructions ?Recorded hydroxyzine HCl 25 mg tablet 25 mg PO Q6H PRN anxiety/ increased 10/11/23 saliva #90 tabs CPAP (Auto-Titrating CPAP) #1 ea 07/09/24 bupropion HCl 150 mg tablet,12 hr 300 mg (2 x 150 mg) PO QAM Mental 07/24/24 sustained-release health #90 tabs sertraline 100 mg tablet (Zoloft) 150 mg (1.5 x 100 mg ) PO DAILY 07/24/24 mental health #135 tabs Allergies Allergy/AdvReac Type Severity Reaction Status Date / Time No Known Allergies Allergy Verified 08/22/24 10:12 Review of Systems 2 General: Reports: 10 or more systems reviewed and unremarkable except in HPI and below : Reports: vaginal bleeding, irregular period and pelvic pain PFSH ED 2 PFSH: Medical History Elevated blood pressure reading without diagnosis of hypertension Salivation increase Apnea, sleep Loud snoring Chest pain Acute anxiety Psychiatric care Dyslipidemia (high LDL; low HDL) Cannabis dependence, uncomplicated Depression Surgical History No pertinent past surgical history Family History Mother , age 23 from car accident No problems noted. Social History Smoking and tobacco/nicotine status: former use of tobacco/nicotine (12/2022) Quit status (tobacco/nicotine): has quit using Year quit tobacco: 2022 Former quit date comment: 12/2022 Second hand smoke exposure: No Alcohol intake: current Alcohol intake frequency: holidays/special occasions only Alcohol type: wine Substance/Drug Use: former Adopted: No Caregiver/support person: No Lives independently: No Household members: spouse and children Marital status: service: No Current occupational status: employed Sexually active: Yes Do you think of yourself as: Straight/Heterosexual Current gender identity: Female Physical Exam 2 Const: COMMON NORMALS: no acute distress, patient oriented x3 and no limitations GENERAL APPEARANCE: cooperative and comfortable HENMT: COMMON NORMALS: normocephalic, atraumatic, Normal nasal mucous membranes and turbinates present, moist oral mucous membranes and oropharynx normal HEAD & SCALP: normal to inspection, normocephalic and atraumatic F GEORGINA & SINUS: normal facial exam NOSE: Normal nasal mucous membranes and turbinates present Eye: COMMON NORMALS: Equal, round and reactive pupils present, EOMs intact bilaterally and conjunctivae normal GENERAL EYE: appearance normal, both eyes and all related structures CONJUNCTIVA: Yes conjunctivae normal PUPIL: Yes Equal, round and reactive pupils present Neck/C-Spine: COMMON NORMALS: supple and no JVD Chest: COMMONS NORMALS: normal inspection of the chest Resp: COMMON NORMALS: normal respiratory effort and clear to auscultation bilaterally AUSCULTATION: clear to auscultation bilaterally Cardio: COMMON NORMALS: no JVD, regular rate, regular rhythm, No gallops present (Cardio), No murmurs present (Cardio) and No rub (Cardio) RATE: r egular rate RHYTHM: regular rhythm GI: COMMON NORMALS: Normal to inspection, nondistended, normoactive bowel sounds present, Soft to palpation and non-tender AUSCULTATION: Yes normoactive bowel sounds PALPATION: Yes Soft to palpation : COMMON NORMALS: Yes no CVA tenderness BLADDER/KIDNEY EXAM: Yes no CVA tenderness Back/Pelvis: COMMON NORMALS: no CVA tenderness and thoracic and lumbar spine normal to inspection Extremity: COMMON NORMALS: normal to inspection Neuro: COMMON NORMALS: patient oriented x3 and CN's II-XII intact bilaterally Psych: COMMON NORMALS: mental status grossly normal, Normal thought process present and cooperative THOUGHT PROCESS: Normal thought process present Skin: COMMON NORMALS: no rashes or lesions noted, turgor normal and no jaundice GENERAL SKIN EXAM: no rashes or lesions noted and turgor normal Course 2 Vital Signs: Vital signs: Vital Signs Temperature 97.9 F 08/22/24 10:52 Pulse Rate 93 08/22/24 10:52 Respiratory Rate 16 08/22/24 10:52 Blood Pressure 134/81 08/22/24 11:26 Pulse Oximetry 99 08/22/24 10:52 Oxygen Delivery Me thod Room Air 08/22/24 10:52 MDM - OB/Uterine Contractions Medical Decision Making CBC and CMP were normal. test was negative. Pelvic ultrasound normal. Patient has abnormal uterine bleeding. Recommended she take ibuprofen for the cramping and it will also help decrease the bleeding. Follow-up with primary care provider next week for recheck. She was discharged in stable condition. Lab Data 08/22/24 12:06 08/22/24 12:06 Laboratory Results WBC 4.84 10^3/uL (3.29-11.43) 08/22/24 12:06 RBC 3.98 10^6/uL (3.85-5.65) 08/22/24 12:06 Hgb 11.90 g/dL (11.27-16.99) 08/22/24 12:06 Hct 34.5 % (36-47) L 08/22/24 12:06 MCV 86.7 fl (85-98) 08/22/24 12:06 MCH 29.9 pg (27-33) 08/22/24 12:06 MCHC 34.5 g/dL (30-55) 08/22/24 12:06 RDW 12.8 % (12.1-15.1) 08/22/24 12:06 Plt Count 138 10^3/cmm (157-399) L 08/22/24 12:06 MPV 9.2 fL (7.4-10.4) 08/22/24 12:06 Neut % (Auto) 59.3 % 08/22/24 12:06 Lymph % (Auto) 31.8 % 08/22/24 12:06 [place]asper % (Auto) 6.8 % 08/22/24 12:06 Eos % (Auto) 1.7 % 08/22/24 12:06 Baso % (Auto) 0.2 % 08/22/24 12:06 Neut # (Auto) 2.87 10^3/uL (1.8-7.7) 08/22/24 12:06 Lymph # (Auto) 1.5 10^3/uL (0.8-4.8) 08/22/24 12:06 [place]asper # (Auto) 0.3 10^3/uL (0.2-0.9) 08/22/24 12:06 Eos # (Auto) 0.1 10^3/uL (0.0-0.8) 08/22/24 12:06 Baso # (Auto) 0.0 10^3/uL (0.0-0.1) 08/22/24 12:06 Nucleated RBC % (auto) 0 % 08/22/24 12:06 Nucleated RBCs # 0.0 /100WBC 08/22/24 12:06 Sodium 139 mmol/L (136-145) 08/22/24 12:06 Potassium 3.6 mmol/L (3.5-5.1) 08/22/24 12:06 Chloride 105 mmol/L (98-107) 08/22/24 12:06 Carbon Dioxide 28 mmol/L (22-29) 08/22/24 12:06 Anion Gap 9.6 (5-19) 08/22/24 12:06 BUN 10 mg/dL (6-20) 08/22/24 12:06 Creatinine 0.6 mg/dL (0.5-0.9) 08/22/24 12:06 GFR Calculation 111.9 mL/min (90-130) 08/22/24 12:06 Glucose 129 mg/dL (65-115) H 08/22/24 12:06 Calculated Osmolality 289 mOsm/kg (285-295) 08/22/24 12:06 Calcium 8.7 mg/dL (8.5-10.5) 08/22/24 12:06 Total Bilirubin 0.2 mg/dL (0.15-1.2) 08/22/24 12:06 AST 13 U/L (0-32) 08/22/24 12:06 ALT 14 U/L (0-33) 08/22/24 12:06 Alkaline Phosphatase 65 U/L (35-105) 08/22/24 12:06 Total Protein 6.7 g/dL (6.6-8.7) 08/22/24 12:06 Albumin 3.6 g/dL (3.5-5.2) 08/22/24 12:06 Globulin 3.1 g/dL (1.3-4.6) 08/22/24 12:06 HCG, Qual Negative (Negative) 08/22/24 12:06 All radiology interpretation(s) finalized by discharge Discharge Plan Discharge Patient Disposition: Home Clinical Impression: Abnormal uterine bleeding Condition: Stable Prescriptions: No Action hydroxyzine HCl 25 mg tablet 25 mg PO Q6H PRN (Reason: anxiety/increased saliva) Qty: 90 3RF bupropion HCl 150 mg tablet sustained-release 12 hr 300 mg PO QAM Qty: 90 1RF sertraline [Zoloft] 100 mg tablet 150 mg PO DAILY Qty: 135 1RF (DME) Auto-Titrating CPAP Device See Rx Instructions .Route Qty: 1 0RF Rx Instructions: 6-16cm Discharge Orders: Discharge ED (Routine); Ordered 08/22/24 Ordered By: Larry Fowler Referrals: Pato Goldberg MD [Primary Care Provider, Family Practice] Patient Instructions: Abnormal Uterine Bleeding Activity Restrictions/Additional Instructions: Take ibuprofen as needed. Follow-up with your primary care physician next week for recheck. 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
== END 2024-08-22 13:24 | disposition home or self-care (01) ==
PROVIDERS: Emergency Provider Emergency Medicine; PCP Family Medicine Adult Medicine
DX: N93.9 Abnormal uterine and vaginal bleeding, unspecified (principal); Z87.891 Personal history of nicotine dependence; E78.5 Hyperlipidemia, unspecified
CPT/HCPCS: 36415; 76856; 80053; 81025; 84703; 85025; 99284